=== PATIENT | female | born 1995 | race Caucasian/White ===

== ENCOUNTER 2017-05-07 19:42 | Outpatient (CLI) | payer OTHER, BC ==
--- NOTE | 2017-05-07 20:28 | DIAGNOSTIC IMAGING REPORT ---
PROCEDURE: XR WRIST MIN 3 VIEWS - RIGHT INDICATION: Wrist pain. TECHNIQUE: Four views. COMPARISON: None. FINDINGS: Osseous structures and joint spaces are normal. If an occult scaphoid fracture is suspected clinically, follow-up examination in 10-14 days may be of assistance. IMPRESSION: 1. Negative right wrist.
== END 2017-05-07 23:00 ==
LOC: XR SRH 19:42
DX: M25.531 Pain in right wrist (principal)